=== PATIENT | male | born 1960 ===

== ENCOUNTER 2016-08-27 19:46 | Observation (INO) | payer MEDICARE, OTHER ==
[2016-08-27] MEDS ORDERED: IOPAMIDOL 370 (76%) IV.SOLN 150 ML IV ONE (19:47)
[2016-08-27 20:18] LABS: ABSOLUTE NEUTROPHIL COUNT 6.6 K/mm3 (1.8-7.7); BASO % 0.3 % (0.2-1.0); EOS # 0.1 (0.0-0.5); HEMATOCRIT 40.9 % (32.0-52.0); HEMOGLOBIN 13.2 gm/l (14.0-18.0); IMM NEUT% 0.2 % (0-1); LYMPH # 1.3 (1.0-4.8); LYMPH % 15.5 % (15-45); MEAN CELL VOLUME 98.1 fl (80.0-94.0); MEAN CORPUSCULAR HEMOGLOBIN 31.7 pg (27.0-31.0); MEAN CORPUSCULAR HGB CONC 32.3 g/dl (33.0-37.0); MEAN PLATELET VOLUME 11.4 fl (7.4-10.4); MONO # 0.6 (0.0-0.8); MONO % 6.6 % (4-12); NEUT % 76.4 % (43-75); PLATELET COUNT 142 K/mm3 (130-400); RED CELL DISTRIBUTION WIDTH 14.1 % (11.5-14.5)
[2016-08-27 20:26] LABS: ALBUMIN 3.8 gm/dL (3.5-5.7); CALCIUM 9.8 mg/dL (8.6-10.3); MAGNESIUM 2.1 mg/dL (1.9-2.7)
[2016-08-27 20:34] LABS: CKMB ISOENZYME 8.4 ng/ml (0.6-6.3)
[2016-08-27 20:48] LABS: TROPONIN I 0.09 ng/ml (0.0-0.06)
[2016-08-27] MEDS ORDERED: FENTANYL 100 MCG/2 ML VIAL ONE (21:12)
[2016-08-27] MEDS ORDERED: ASPIRIN CHEWTAB 81 MG TABLET ONE (22:07)
[2016-08-28] MEDS ORDERED: REGADENOSON 0.1 MG DOSE IV ONE (01:00)
[2016-08-28 02:01] VITALS: BMI 31.1
[2016-08-28] MEDS ORDERED: FLU VACC 2016-17 (36MO-64Y)/PF 60 MCG/0.5 ML SYRINGE IM V ONE (02:02)
[2016-08-28] MEDS ORDERED: BISACODYL 10 MG SUP PR PRN (06:41)
[2016-08-28] MEDS ORDERED: MENTHOL/CETYLPYRD 1 EACH LOZENGE PO PRN (06:41)
[2016-08-28] MEDS ORDERED: BLISTEX LIPSTICK 1 EACH TP PRN (06:41)
[2016-08-28] MEDS ORDERED: BISACODYL 5 MG TABLET.EC PO PRN (06:41)
[2016-08-28] MEDS ORDERED: SODIUM CHLORIDE 0.9% 100 ML IV PRN (06:41)
[2016-08-28] MEDS ORDERED: MAGNESIUM HYDROXIDE 30 ML UDCUP PO PRN (06:41)
[2016-08-28] MEDS ORDERED: NICOTINE POLACRILEX 2 MG LOZENGE PO PRN (06:49)
--- NOTE | 2016-08-28 07:19 | CT ---
Exam Type: CTA CHEST FOR DISSECTION, CTA ABD/PELVIS Date and Time: 08/27/2016 8:52 PM Clinical information: Chest pain for 2 days with dyspnea. Comparison: None Procedure: Imaging device: GOOM Aquilion [address] scanner 1 mm axial images were obtained through the chest, abdomen and pelvis in the arterial phase of contrast enhancement. Stacked reconstructed 3, 4 and 5 mm images were photographed in the axial coronal and sagittal planes. 3-D reconstruction images were also photographed off the scanner workstation. No oral contrast was utilized for this examination. 150 ml of Isovue-370 was injected intravenously. Exam: with intravenous contrast. FINDINGS: Chest: Thyroid Gland: The thyroid gland appears of normal size with no discrete masses visualized. Mediastinum: Numerous markedly enlarged mediastinal lymph nodes are visualized. There is a superior mediastinal lymph node observed on image 15 measuring 1.8 x 2.4 cm in size. A pretracheal lymph node on image 26 measures up to 1.4 cm in size. A pretracheal lymph node on image 27 measures 1.5 cm in size. There is a 2.5 cm lymph node observed within the aorticopulmonary window on image 30. Hilar structures: Significant bilateral hilar adenopathy is observed with prominent soft tissue also seen in the subcarinal location of the mediastinum, also likely reflecting adenopathy. Heart: Enlarged. Aorta: The thoracic aorta appears to be of normal caliber with mild atherosclerotic vascular calcification. No dissection is visualized. There is evidence of prior median sternotomy. Pericardium: No discrete pericardial abnormalities or evidence of significant fluid is observed. Esophagus: The visualized portions of the esophagus are unremarkable. Central airways: Unremarkable. Lung parenchyma: Patchy areas of airspace consolidation are seen within the dependent portions of both lower lobes, as well as a portion of the right middle lobe. No effusion or pneumothorax is visualized. There appears to be minimal left pleural effusion. Abdomen/Pelvis: Liver: the liver is homogeneous with no discrete abnormality visualized. No definite findings of biliary dilatation are observed. Spleen: The spleen is homogeneous and does not appear to be enlarged. Gallbladder: Normal without enlargement or evidence of adjacent inflammatory changes. Pancreas: Normal without enlargement or evidence of adjacent inflammatory changes. Adrenal glands: Normal without enlargement or evidence of adjacent inflammatory changes. Abdominal aorta: Atherosclerotic vascular calcification is noted. There is mild aneurysmal prominence of the distal aorta measuring up to 2.9 x 3.0 cm transversely. Kidneys: A small exophytic low-attenuation lesion is seen involving the superior right kidney, likely reflecting a cyst. No evidence of obstruction is visualized. Bilateral nonspecific perinephric stranding is visualized, which may reflect evidence of underlying infection though clinical correlation is recommended. Bowel structures: The visualized bowel is of normal caliber without evidence of dilatation or obstruction. No free fluid or mesenteric inflammatory changes are identified. Appendix: Not well visualized. Bladder: The bladder is nearly completely decompressed with significant circumferential wall thickening observed. Hernia: Bilateral fat filled inguinal hernias are identified. There is also a small umbilical hernia present. Adenopathy: No significant enlarged adenopathy is visualized. Osseous structures: Thoracolumbar degenerative changes are present. Pelvic structures: The prostate gland appears to be mildly enlarged. IMPRESSION: 1. Significant mediastinal and bilateral hilar adenopathy. An infiltrative process such as lymphoma or leukemia cannot be excluded. 2. Cardiomegaly. 3. No pulmonary embolus or thoracic aortic aneurysm or dissection visualized. 4. Areas of airspace consolidation within both lower lobes in the right middle lobe which may reflect infection or atelectasis. 5. A minimal left pleural effusion. 6. Prior median sternotomy. 7. Nonspecific inflammatory stranding adjacent to both kidneys which may reflect findings of underlying infection, though clinical correlation is recommended. 8. A probable right renal cyst. 9. A distal abdominal aortic aneurysm measuring up to 3.0 cm in transverse dimension. 10. Nonvisualization of the appendix. 11. Bilateral fat filled inguinal hernias with a small umbilical hernia. 12. Decompression of the bladder with significant circumferential wall thickening which may reflect findings of underlying cystitis. 13. Thoracolumbar change changes. 14. A mildly prominent prostate gland. The findings were called to the emergency room at 2213 hours, 08/27/2016, by [facility] radiology.
[2016-08-28 07:54] LABS: INR 1.2; PARTIAL THROMBOPLASTIN TIME 24.5 SECONDS (24.5-33.0); PROTHROMBIN TIME 12.7 SECONDS (9.3-11.4)
[2016-08-28 07:58] LABS: CHOLESTEROL RISK RATIO 6.3 (4.0-6.7)
[2016-08-28 08:05] LABS: CKMB ISOENZYME 5.7 ng/ml (0.6-6.3)
[2016-08-28 08:11] LABS: THYROID STIMULATING HORMONE 7.95 uIU/ml (0.34-5.60)
[2016-08-28 08:18] LABS: FREE T4 0.77 ng/dL (0.58-1.64)
[2016-08-28 08:25] LABS: TROPONIN I 0.07 ng/ml (0.0-0.06)
[2016-08-28] MEDS ORDERED: CARVEDILOL 3.125 MG TABLET PO SCH (09:00)
[2016-08-28] MEDS ORDERED: LOSARTAN POTASSIUM 50 MG TABLET PO SCH (09:00)
[2016-08-28] MEDS ORDERED: DOCUSATE SODIUM 100 MG CAPSULE PO SCH (09:00)
[2016-08-28] MEDS ORDERED: ENOXAPARIN SODIUM 100 MG/ML SYRINGE SUB-Q SCH (09:00)
[2016-08-28] MEDS ORDERED: ASPIRIN (ENTERIC COATED) 325 MG TABLET.EC PO SCH (09:00)
--- NOTE | 2016-08-28 10:07 | HP ---
Jack Villavicencio Jr. [id number] DATE OF ADMISSION: 08/28/2016 Patient does not have a local physician. CHIEF COMPLAINT: Dyspnea and chest pain. HISTORY OF PRESENT ILLNESS: The patient is a 56-year-old male with history of chest tightness over the last couple of days. He notes this is worsened with stress or tension and decreased with being away from his girlfriend. He did have a bypass 8 or 9 years ago. He notes marked decreased activity tolerance compared to a month ago and having to stop when walking after about 30 feet. He does smoke about two cigarettes a day. Does not have diabetes. He does report a history of congestive heart failure. He does have a family history of coronary artery disease. He does have a prior history of a bypass. PAST MEDICAL HISTORY: He has a history of hypothyroidism, although he is not on a replacement medicine at this time. He has a history of coronary artery disease, history of congestive heart failure, and he reports a history of asbestosis. PAST SURGICAL HISTORY: Remarkable for bypass 8 or 9 years ago, four vessels. ALLERGIES: SULFA AND PENICILLIN. MEDICATIONS: 1. He reports he takes Lasix 40 mg daily. 2. He had also taken some nitroglycerin from his girlfriend which did not help symptoms. SOCIAL HISTORY: He is visiting from [place]. No alcohol. He smokes two cigarettes a day as well as some marijuana. He is disabled. 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 He is . He has three kids. No synagogue affiliation. Hobbies include fishing. He does not drive due to a child support issue and tickets. FAMILY HSITORY: Father is 76 and healthy. His mom in 60's of congestive heart failure and diabetes. REVIEW OF SYSTEMS: Eyes, ears, nose, and throat are okay. He is short of breath easily. No cough. No sputum. He does have chest pain with limited activity tolerance. He reports his lungs hurt. Stomach is okay. No constipation or diarrhea. No nausea or vomiting. No urinary complaints. Arms and legs are okay. Ankles are not swelling. No history of stroke. He notes the nitroglycerin was not particularly helpful on review of systems. PHYSICAL EXAMINATION: GENERAL: Nontoxic male lying flat. He is sleeping easily, but arouses with a startle. VITAL SIGNS: Temperature 98.1, pulse 88, blood pressure 123/76, respirations 18, 94% saturation on room air. HEENT: Head is normocephalic, atraumatic. Eyes are closed because of the light. Ears are normal. Mouth has dentures. NECK: No JVD. No masses. LUNGS: Clear to auscultation bilaterally. HEART: Regular rate and rhythm with slight accentuated S2, but no murmur. Midline chest incision is noted. ABDOMEN: Soft, nontender, nondistended. Bowel sounds are normal. GENITOURINARY: Deferred. EXTREMITIES: No clubbing, cyanosis, or edema. Pulses are good. Tattoo on the right shoulder. LABORATORY: White count 8.7, hemoglobin 13.2, platelets 142. Sodium 136, potassium 4.8, chloride 104, CO2 22, BUN 23, creatinine 1.1, glucose 130, calcium 9.8, magnesium 2.1. AST 42, ALT 25, alk phos 62. CK is 301, CK-MB of 8.4, troponin 0.09, initially 0.07 on recheck. Albumin 3.8, globulin 3.7. DIAGNOSTICS: CT of the chest no pulmonary embolism, no dissection, nonspecific ground glass changes noted, cardiomegaly, small left sided pleural effusion, mild bilateral perinephric stranding, mild pericolic inflammatory changes for renal abdominal aortic aneurysm 3 cm, no rupture, no dissection. EKG shows sinus tachycardia 103 beats per minute, left atrial enlargement, Q-waves inferiorly in II, III, and AVF, and more pronounced Q-waves in V3, V4, V5, and V6 suggesting anterolateral myocardial infarction, ST changes, no significant ST elevation noted at this spot, but nonspecific flattening suggested. ASSESSMENT AND PLAN: 1. New chest pain and dyspnea, decreased activity tolerance, suspect subacute myocardial infarction with associated systolic congestive heart failure. Plan aspirin, beta toby, using Coreg, and start Lovenox. We will check a BNP and anticipate a Lexiscan myoview later today along with checking lipids. We will follow up the results. 2. Previous history of coronary artery disease and bypass. We will be checking lipids. 3. History of congestive heart failure. Anticipate use of Losartan and Coreg. Check an ejection fraction on Lexiscan. 4. History of smoking. He may have nicotine lozenge as needed. 5. History of hypothyroidism. We will check TSH and free T4. 6. Code status not determined at this time. 7. Venous thrombosis prophylaxis on Lovenox. 8. Social concerns with reported homelessness. Appreciate social work input. JOB: [id number] CC: [facility]
[2016-08-28 10:40] VITALS: BP 127/88
--- NOTE | 2016-08-28 10:59 | NUC MED ---
CARDIAC STRESS MULTIPLE STUDY HISTORY: Chest pain with dyspnea. COMPARISONS: None. PROCEDURE: The patient was administered 13.4 mCi of technetium labeled sestamibi. The patient was stressed with 0.4 mg of Lexiscan with an additional 44.1 mCi technetium labeled sestamibi administered. SPECT imaging was performed. FINDINGS: The uptake images are markedly abnormal with large significant areas of decreased uptake evident on both rest and stress images involving the inferior myocardial wall diffusely as well as the anterior wall extending towards the apex. There is questionable subtle reversibility identified anteriorly near the septum. There is global hypokinesis observed on the wall motion images with a significantly decreased ejection fraction measured at 16%. IMPRESSION: 1. Large fixed defects involving the majority of the inferior wall and a portion of the anterior wall near the apex consistent with prior areas of infarction. Questionable subtle reversibility of the anterior wall near the septum raised the possibility of an area of ischemia as well. 2. Significant global hypokinesis with a markedly decreased ejection fraction of 16%. The findings were discussed with Dr. Navarro at 1054a hours.
[2016-08-28] MEDS ORDERED: FUROSEMIDE 20 MG/2 ML VIAL IV ONE (11:38)
--- NOTE | 2016-08-28 13:18 | TS ---
Jack Villavicencio Jr : 1960 [id number] TRANSFIER DIANOSES: 1. Ischemic cardiomyopathy. 2. Acute on chronic congestive heart failure attributed to ischemic cardiomyopathy. 3. History of hypothyroidism not current taking medicines. 4. History of asbestosis. 5. History of smoking. 6. Dyslipidemia with low HDL. 7. Mediastinal and hilar adenopathy. REASON FOR ADMISSION: The patient is a 56-year-old male with history of bypass approximately 8 years ago. He does take Lasix daily. He notes some gradual worsening of his dyspnea and some chest discomfort over the last week. He describes symptoms being worse with tension and activity and improved with being away from his girlfriend. He notes activity tolerance markedly limited at walking only about 30 feet. He in the emergency room was noted to have a borderline elevated troponin at 0.9. CK-MB 8.4, CK 301. Glucose was 130, creatinine 1.1. Sodium and potassium were normal. Magnesium was 2.1. White count 8.7, hemoglobin 13.2, platelets 142. BNP greater than 1250. A lipid panel was also done showing HDL of 20, LDL 86. Patient underwent CTA of the chest, abdomen, and pelvis which showed significant mediastinal and bilateral hilar adenopathy. An infiltrative process such as familial leukemia cannot be excluded, cardiomegaly, no pulmonary embolus or thoracic aortic aneurysm dissection visualized. No pulmonary embolus, thoracic aortic aneurysm, or dissection visualized. Areas of airspace consolidation within both lobes of the right middle lobe which may reflect infection or atelectasis. Minimal left pleural effusion, prior median sternotomy, nonspecific inflammatory stranding adjacent to both kidneys which may reflect underlying infection although, clinical correlation is recommended, probable right renal cyst, distal abdominal aortic aneurysm measuring 3 cm in transverse dimension, non-visualization of the appendix, bilateral fat filled inguinal hernia's with small umbilical hernia, decompression of the bladder with significant circumferential wall thickening which may reflect findings of underlying cystitis, thoracolumbar changes, mild prominent prostate gland. Patient's urinalysis is still pending at this time. Patient's EKG demonstrated sinus rhythm to sinus tachycardia with up to 103 beats per minute, OR interval of 177, QRS 110, indeterminate axis, QTC 425, Q-waves noted inferiorly at II, III, and AVF, and fairly prominent Q-waves V3, V4, V5, and into V6, non-specific ST changes noted laterally, no significant ST elevation is noted. Patient was referred to the hospitalist service. He was placed on Carvedilol, Losartan, treatment dose Lovenox, and aspirin as well as nicotine replacement. He underwent a Lexiscan myoview testing which showed large fixed defect involving the majority of the inferior wall and a portion of the anterior wall near the apex consistent with prior areas of infarction, questionable subtle reversibility anterior wall near the septum raised the possibility of an area of ischemia as well, significant global hypokinesis with markedly decreased ejection fraction of 16%. Results were reviewed with patient as well as with Dr. Christiano Arzate at [facility]. Dr. Arzate has accepted this patient in transfer for anticipated further evaluation and as patient had requested going to [place] which would be closer to his home. Patient is anticipated to be transferred later this afternoon due to beds being in short supply. Vital signs at this time show a temperature of 98.4, pulse 77, blood pressure 127/88, respirations 20, 94% saturation on 2 liters. CURRENT MEDICATIONS: 1. Aspirin 325 mg daily. 2. Cepacol as needed. 3. Dulcolax as needed. 4. Carvedilol 3.125 mg by mouth twice daily with meals. 5. Docusate 100 mg by mouth twice daily. 6. Enoxaparin 100 mg every 12 hours scheduled. 7. Losartan 25 mg by mouth daily. 8. [id number] as needed. 9. Nicotine lozenge as needed. 10. Blistex topically as needed. 11. It is anticipated that he will also receive a dose of Lasix 20 mg IV. CONDITION ON DISCHARGE: Stable. Patient is comfortable at rest, but has low activity tolerance. JOB: [id number] CC: Dr. Christiano Arzate, cardiology at [facility]
[2016-08-28 15:24] LABS: PH,URINE 6.5 (5.0-8.0); SPECIFIC GRAVITY 1.015 (1.001-1.030); URINE BILIRUBIN NEGATIVE (NEGATIVE); URINE BLOOD NEGATIVE (NEGATIVE); URINE GLUCOSE (UA) NEGATIVE (NEGATIVE); URINE LEUKOCYTE ESTERASE NEGATIVE (NEGATIVE); URINE NITRITE NEGATIVE (NEGATIVE); URINE PROTEIN NEGATIVE (NEGATIVE); URINE UROBILINOGEN NORMAL (0-1 mg/dl)
[2016-08-28 15:26] LABS: URINE APPEARANCE CLEAR; URINE COLOR YELLOW
[2016-08-28 15:41] LABS: URINE BACTERIA 0; URINE EPITHELIAL CELLS 0-1 /hpf; URINE RBC 0 /hpf; URINE WBC NEG /hpf
== END 2016-08-28 15:00 | disposition other institution (70) ==
LOC: ED 19:46 → MS 08-28 00:59 → INTOOBSV 08-28 00:59
PROVIDERS: ADMIT Family Medicine; ATTEND Family Medicine
DX: I25.5 Ischemic cardiomyopathy (principal); I25.10 Atherosclerotic heart disease of native coronary artery without angina pectoris; Z87.891 Personal history of nicotine dependence; E03.9 Hypothyroidism, unspecified; I50.23 Acute on chronic systolic (congestive) heart failure; E78.5 Hyperlipidemia, unspecified
CPT/HCPCS: 83880; 85025; 82550 ×2; 82553 ×3; 80053; 84439; 80061; 83735; 85730; 85610; 84443; 84484 ×3; 81001; 78452; 74174; 71275; 99285 ×2; 96374; 93017; 93005 ×2; A9270 ×4; J3010; J1940; J1650; J2785; Q9967; A9500